=== PATIENT | female | born 1960 | race Caucasian/White ===

== ENCOUNTER → 2019-01-11 17:27 | Outpatient (CLI) | payer BC, OTHER, SELFPAY ==
[2017-01-19 09:31] VITALS: BMI 39.9
[2019-01-11 17:46] LABS: Hematocrit 31.4 % (37-47); Hemoglobin 9.2 g/dL (12.0-15.0); Mean Corp Hgb Conc 29.3 g/dL (32-36); Mean Corpuscular Hgb 24.7 pg (27.0-32.0); Mean Corpuscular Volume 84.4 fL (81-99); Mean Platelet Vol. 9.8 fl (6.2-12.0); Platelet Count 351 K/mm3 (150-450); RBC Distribution Width CV 16.8 % (11.6-14.6); RBC Distribution Width SD 51.8 fl (35.1-43.9); Red Blood Count 3.72 M/mm3 (4.2-5.4)
[2019-01-11 18:22] LABS: Ferritin 6 ng/mL (8-252); Iron 15 ug/dL (50-170)
[2019-01-13 16:34] LABS: Endomysial Antibody IgA Negative (Negative); Immunoglobulin A 85 mg/dL (87-352)
[2019-01-14 15:46] LABS: t-Transglutaminase IgA <2 U/mL (0-3)
== END ==
PROVIDERS: Family Provider Family Medicine; PCP Family Medicine; Referring Provider Internal Medicine Gastroenterology; Visit Provider Internal Medicine Gastroenterology
DX: D50.9 Iron deficiency anemia, unspecified (principal)
CPT/HCPCS: 36415; 82728; 82784; 83516; 83540; 85027; 86255

== ENCOUNTER → 2019-01-12 13:12 | Outpatient (CLI) | payer BC, OTHER, SELFPAY ==
[2017-01-19 09:31] VITALS: BMI 39.9
--- NOTE | 2019-01-12 13:17 | CT_ITS ---
STUDY: CT ABDOMEN AND PELVIS WITH CONTRAST REASON FOR EXAM: Female, 58 years old. Upper abdominal pain, bloating after eating RADIATION DOSAGE (If Supplied By Facility): CTDIvol = ( 14.05 ) mGy, DLP = ( 1122.77 ) mGycm TECHNIQUE: Transaxial images were obtained from the dome of the diaphragm to the symphysis pubis with oral contrast. 100 mL of Isovue-370 was administered. Sagittal and coronal images were reconstructed. Individualized dose optimization techniques were used for this CT. COMPARISON: None. FINDINGS: The visualized lung bases are unremarkable. The heart size is within normal limits. There is no pericardial effusion. Coronary arterial calcifications are present. Normal liver. Normal gallbladder and extrahepatic biliary system. Normal spleen. There are pancreatic calcifications in the distribution of the ducts consistent with chronic pancreatitis. Normal bilateral adrenal glands. There is a 9 mm probable cyst of the right kidney. Normal left kidney. Normal visualized stomach. Normal small intestine. There is sigmoid diverticulosis. There is diffuse sigmoid wall thickening. The appendix is visualized and appears normal. There are calcified plaques of the abdominal aorta and common iliac arteries. Normal inferior vena cava. Normal retroperitoneum. Normal urinary bladder. There is a small umbilical hernia containing fat. Status post total right hip replacement changes are noted. There are degenerative changes of the visualized thoracolumbar spine. CT/Abdomen/Pelvis WITH Contrast IMPRESSION: 1. Pancreatic calcifications noted consistent with chronic pancreatitis. 2. 9 mm probable cyst of the right kidney. Nonemergent ultrasonographic correlation is recommended. 3. Sigmoid diverticulosis. There is diffuse sigmoid wall thickening. This wall thickening may represent chronic diverticular disease. Neoplastic process should be excluded however. 4. Small fat-containing umbilical hernia. 5. Status post total right hip replacement changes. Degenerative changes of the visualized thoracolumbar spine. Electronically Signed: Clarence Reynolds MD at 20:56 EST , Service support ,
== END ==
PROVIDERS: Family Provider Family Medicine; PCP Family Medicine; Referring Provider Family Medicine; Visit Provider Family Medicine
DX: R10.12 Left upper quadrant pain (principal)
CPT/HCPCS: 74177; Q9967; A4216

== ENCOUNTER → 2019-04-08 16:14 | Outpatient (CLI) | payer BC, OTHER, SELFPAY ==
[2019-04-07 15:23] VITALS: BMI 32.8
[2019-04-11 20:07] LABS: Endomysial Antibody IgA Negative (Negative)
[2019-04-11 20:30] LABS: Immunoglobulin A 94 mg/dL (87-352); t-Transglutaminase IgA <2 U/mL (0-3)
== END ==
PROVIDERS: PCP Family Medicine; Referring Provider Internal Medicine Gastroenterology; Visit Provider Internal Medicine Gastroenterology
DX: D50.9 Iron deficiency anemia, unspecified (principal)
CPT/HCPCS: 36415; 82784; 83516; 86255

== ENCOUNTER → 2019-06-15 15:56 | Outpatient (CLI) | payer BC, OTHER, SELFPAY ==
[2019-04-07 15:23] VITALS: BMI 32.8
[2019-06-15 16:50] LABS: Absolute Lymphocyte Count 2.12 X10^3/uL (0.83-4.51); Absolute Neutrophil Count 4.7 X10^3/uL (2.0-7.7); Basophil# 0.04 X10^3/uL; Basophil% 0.5 % (0-1); Eosinophil# 0.62 X10^3/uL; Eosinophils% 7.7 % (0-5); Hematocrit 41.3 % (37-47); Hemoglobin 13.1 g/dL (12.0-15.0); Lymphocyte # 2.12 X10^3/ul (4.0); Lymphocyte % 26.3 % (19-41); Mean Corp Hgb Conc 31.7 g/dL (32-36); Mean Corpuscular Hgb 30.3 pg (27.0-32.0); Mean Corpuscular Volume 95.4 fL (81-99); Monocyte# 0.61 X10^3/uL; Monocyte% 7.6 % (0-10); NRBC Flagged by Analyzer 0 % (0-5); Neutrophil # 4.65 X10^3/uL (2.7-7.7); Neutrophil % 57.5 % (47-70); Platelet Count 253 K/mm3 (150-450); RBC Distribution Width SD 52.6 fl (35.1-43.9); Red Blood Count 4.33 M/mm3 (4.2-5.4); White Blood Count 8.1 K/mm3 (4.4-11.0)
[2019-06-15 17:18] LABS: Vitamin B12 387 pg/mL (211-911)
[2019-06-15 17:29] LABS: AST(SGOT) 18 U/L (15-37); Alanine Aminotransfer ALT/SGPT 19 U/L (13-56); Albumin, Serum 3.4 g/dL (3.2-5.0); Alkaline Phosphatase 105 U/L (45-117); Anion Gap 5 (5-15); BUN 22 mg/dL (7-18); BUN/Creat Ratio 28.1 RATIO (10-20); Chloride 105 mmol/L (98-107); Creatinine, Serum 0.78 mg/dL (0.55-1.02); EST Glomerular Filtration Rate 79 mL/min (>60); Est Glom Filt Rate - Afr Amer 96 mL/min (>60); Ferritin 53 ng/mL (8-252); Globulin 3.4 g/dL (2.2-4.2); Glucose 124 mg/dL (74-106); Iron 79 ug/dL (50-170); Iron Binding Capacity,Total 298 ug/dL (250-450); LDH 182 U/L (84-246); PERCENT IRON SATURATION 26.5 % (15.0-55.0); Protein, Total 6.8 g/dL (6.4-8.2); Sodium Level 137 mmol/L (136-145)
== END ==
PROVIDERS: PCP Family Medicine; Referring Provider Internal Medicine Medical Oncology; Visit Provider Internal Medicine Medical Oncology
DX: D50.8 Other iron deficiency anemias (principal)
CPT/HCPCS: 36415; 80053; 82607; 82728; 82746; 83540; 83550; 83615; 85025

== ENCOUNTER 2020-07-26 20:58 | Observation (INO) | payer OTHER, BC, SELFPAY ==
[2019-12-21 08:59] VITALS: BMI 32.1
[2020-07-26 20:59] VITALS: BP 107/63; PULSE 82; RESP 16; TEMP 36.2; O2SAT 96; BMI 29.2
--- NOTE | 2020-07-26 21:30 | EKG12_ITS ---
Test Reason : ABD PAIN Blood Pressure : / mmHG Vent. Rate : 143 BPM Atrial Rate : 441 BPM P-R Int : 000 ms QRS Dur : 106 ms QT Int : 332 ms P-R-T Axes : 000 -07 151 degrees QTc Int : 512 ms Atrial fibrillation with rapid ventricular response Moderate voltage criteria for LVH, may be normal variant Inferior infarct , age undetermined Marked ST abnormality, possible lateral subendocardial injury Abnormal ECG Confirmed by CHANDLER CRONIN, LAUREN ([id number]), assistant editor PABLO QUINONES ([id number]) on 07/30/2020 10:53:51 A M Referred By: ERUM Confirmed By:NURY ARTEAGA MD
--- NOTE | 2020-07-26 21:31 | EDS_ITS ---
HPI HPI - GI History of Present Illness Chief Complaint: Abd Pain Informant: patient and family Abdominal Pain/Flank Pain Onset: Weeks Context: Gradual Onset Timing: Intermittent Quality: Cramping Location: Epigastric and LUQ Current Severity: Mild Maximum Severity: Mild Worsened by: Nothing Relieved by: Remaining Still Nausea/Vomiting/Emesis GI Symptom: Positive for Nausea; Negative for Vomiting Onset: Weeks Severity: Mild Diarrhea/Melena/Hematochezia GI Symptom: Negative for Diarrhea, Melena and Hematochezia Associated Symptoms Associated Symptoms: Negative for Dysuria and Frequency Narrative Narrative: 60-year-old female history of pancreatitis and pancreatic insufficiency. Previously was on the medication Creon but there is been an insurance issue and she is currently not able to get it filled. States that she has not been feeling well the last several weeks with intermittent epigastric le ft upper quadrant abdominal pain. Nausea but no vomiting. No fever. No melena. Mild diarrhea no melena. Prior similar symptoms: Yes Recent Illness/Hospitalization: No PFSH PFSH Medical History Anemia Anxiety CAD (coronary artery disease) Carpal tunnel syndrome Fibromyalgia GERD (gastroesophageal reflux disease) IBS (irritable bowel syndrome) Osteoarthritis Home Medications lisinopril 20 mg PO DAILY 02/28/13 [History Last Taken Unknown] aspirin 81 mg PO DAILY@0800 07/17/15 [History Last Taken Unknown] atorvastatin 80 mg PO QHS 07/17/15 [History Last Taken Unknown] gabapentin 600 mg PO TIDCM 01/20/19 [History Last Taken Unknown] hydrocodone-acetaminophen 1 tab PO TID 01/20/19 [History Last Taken Unknown] twzrpa-yrepcevl-hirwrrg 1 ea PO TID 01/20/19 [History Last Taken Unknown] metoprolol tartrate 100 mg PO DAILY 01/20/19 [History Last Taken Unknown] pantoprazole 40 mg PO DAILY 01/20/19 [History Last Taken Unknown] duloxetine 90 mg PO DAILY 01/27/19 [History Last Taken Unknown] polysaccharide iron complex 150 mg PO DAILYCM #90 cap 06/16/19 [Rx Last Taken Unknown] Allergy/AdvReac Type Severity Reaction Status Date / Time latex Allergy Other Verified 07/26/20 21:02 Family History Sister Cervical cancer Grandfather Cancer Surgical History H/O total hip arthroplasty Hx of cardiac cath Social History Smoking Status: Current every day smoker tobacco type: cigarettes ROS ROS ED Review of Systems ROS Unobtainable: Denies due to encephalopathy Constitutional Constitutional ED: Denies chills or fever(s) ENT ENT ED: Denies ear pain or sore throat Cardiovascular Cardiovascular: Reports racing heartbeat; Denies chest pain Respiratory/Chest Respiratory/Chest: Denies cough or dyspnea Gastrointestinal Gastrointestinal: Reports abdominal pain, diarrhea and nausea; Denies vomiting Genitourinary Genitourinary ED: Denies dysuria or hematuria Musculoskeletal Musculoskeletal: Denies myalgias Integumentary Denies rash Neurologic Neurologic: Denies headache(s) Psychiatric Psychiatric: Denies depression Endocrine Endocrinology: Denies polyuria Hematologic/Lymphatic Hematologic/Lymphatic: Denies easy bruising Allergic/Immunologic Allergic/Immunologic ED: Denies urticaria EXAM Physical Exam Narrative Exam Narrative: Older female no acute distress. Vital signs stable afebrile. Does not look septic or toxic. Does not look significantly dehydrated. Exam benign except for mild epigastric and left upper quadrant tenderness. No rebound, guarding or rigidity. No distention. Heart rates in the 100s. Const Vital Signs: 07/26/20 20:59 Temperature 97.2 F L Temperature Source Temporal Pulse Rate 82 Respiratory Rate 16 Blood Pressure 107/63 Blood Pressure Mean 77 Pulse Ox 96 Oxygen Delivery Method Room Air Positive well nourished and well developed General Appearance ED: well developed HEENT Reports moist mucous membranes normocephalic and atraumatic; Negative for trauma or tenderness Eyes PERRL and EOMs intact bilaterally Neck no lymphadenopathy, supple and no JVD General: Negative for tenderness Resp normal respiratory effort and clear to auscultation bilaterally Cardio regular rhythm and no murmurs Rate: tachycardic GI non-distended and no masses Inspection: Negative for abdominal distention Auscultation: normoactive bowel sounds; Negative for hyperactive bowel sounds or hypoactive bowel sounds Palpation: soft and tender; Negative for guarding or rebound tenderness present Back/Spine no CVA tenderness Extremity full ROM General Extremety ED: Negative for edema or tenderness General Extremity: Negative for edema Neuro CN's II-XII intact bilaterally Sensorium / Orientation: alert, oriented to person, oriented to place, oriented to time and orientation impaired Motor Exam: strength 5/5 throughout Psych mental status grossly normal Skin Lesions: no lesions Rashes: no rashes MDM MDM MDM Narrative Medical decision making narrative: 60-year-old female with epigastric abdominal pain. Undergo a GI work-up. Also she states she has had accelerated heart rate and EKG and troponin to be obtained. Repeat exam patient is doing well at 11:20 PM. After single dose of Cardizem IV her heart rates in the 70s. Currently she has converted to a sinus rhythm. She is having no pain. She denies discussed all of her test results. I have the hospitalist on page for admission. New onset A. fib RVR. Lab Data Attestation: I reviewed the patient's lab results. Lab results narrative: CBC normal. White count 9. Hemoglobin 13. Electrolytes unremarkable gap of 6. Creatinine 1.1. Liver enzymes normal. Troponin normal. Lipase normal at 42. Portable chest x-ray unremarkable. EKG consistent with A. fib RVR. Labs: Laboratory Results - last 24 hr 07/26/20 07/26/20 21:34 21:34 WBC 9.3 RBC 4.74 Hgb 13.6 Hct 44.0 MCV 92.8 MCH 28.7 MCHC 30.9 L RDW Std Deviation 53.3 H RDW Coeff of Mary 15.5 H Plt Count 335 MPV 10.5 Immature Gran % (Auto) 0.400 Neut % (Auto) 78.6 H Lymph % (Auto) 13.4 L Jennings % (Auto) 6.5 Eos % (Auto) 0.8 Baso % (Auto) 0.3 Absolute Neuts (auto) 7.3 Absolute Lymphs (auto) 1.24 Nucleated RBC % 0 Sodium 140 Potassium 3.8 Chloride 105 Carbon Dioxide 29.0 Anion Gap 6 BUN 24 H Creatinine 1.16 H Estim Creat Clear Calc 43.42 Est GFR (MDRD) Af Amer 61 Est GFR (MDRD) Non-Af 50 L BUN/Creatinine Ratio 20.7 H Glucose 123 H Calcium 8.8 Total Bilirubin 0.40 AST 15 ALT 13 Alkaline Phosphatase 104 Troponin I 0.042 Total Protein 7.1 Albumin 3.4 Globulin 3.7 Albumin/Globulin Ratio 0.9 Lipase 42 L Radiography Diagnostic Testing: Radiology Impression Chest X-Ray 07/26/20 22:17 IMPRESSION: Normal x-ray examination of the chest. Electronically Signed: Annette Tan MD at 23:02 EDT Tel , Service support , Portable chest x-ray no acute abnormality. Portable 1 view interpreted by myself and the radiologist. Borderline cardiomegaly. Rhythm Strip Rhythm Strip: A-fib Rate: 143 Ectopy: None EKG Initial EKG: Attestation: I personally reviewed and interpreted this EKG as follows: Interpretation: Atrial Fibrillation Comments: A. fib RVR rate of 143 with rate dependent ischemia V3 through V6 with ST depression. Also LVH. Inferior infarct. Discharge Plan Triage Chief Complaint: Abd Pain ED Provider: Reyes Weldon Dx/Rx/DC Orders Clinical Impression: Atrial fibrillation, new onset Prescriptions: No Action lisinopril 40 MG tablet 20 mg PO DAILY RF: 0 atorvastatin 80 MG tablet 80 mg PO QHS RF: 0 aspirin 81 MG tablet,chewable 81 mg PO DAILY@0800 RF: 0 gabapentin 600 MG tablet 600 mg PO TIDCM RF: 0 metoprolol tartrate 100 MG tablet 100 mg PO DAILY RF: 0 hydrocodone-acetaminophen 1 TABLET tablet 1 tab PO TID RF: 0 pantoprazole 40 MG tablet 40 mg PO DAILY RF: 0 lqoznu-pscebber-rhytrwx 1 EACH capsule,delayed release(DR/EC) 1 ea PO TID RF: 0 duloxetine 60 MG capsule 90 mg PO DAILY RF: 0 polysaccharide iron complex 150 MG capsule 150 mg PO DAILYCM Qty: 90 RF: 3 Primary Care Provider: Emiliano Jose Referrals: Emiliano Jose DO [Primary Care Provider] - Disposition Disposition: Acute Care Hospital [facility]
[2020-07-26] MEDS: 0.9% Normal Saline 1,000 ML 125 ML IV (21:39)
[2020-07-26 21:49] LABS: Absolute Lymphocyte Count 1.24 X10^3/uL (0.83-4.51); Absolute Neutrophil Count 7.3 X10^3/uL (2.0-7.7); Basophil# 0.03 X10^3/uL; Basophil% 0.3 % (0-1); Eosinophil# 0.07 X10^3/uL; Eosinophils% 0.8 % (0-5); Hemoglobin 13.6 g/dL (12.0-15.0); Lymphocyte # 1.24 X10^3/ul (0.83-4.51); Lymphocyte % 13.4 % (19-41); Mean Corp Hgb Conc 30.9 g/dL (32-36); Mean Corpuscular Hgb 28.7 pg (27.0-32.0); Mean Corpuscular Volume 92.8 fL (81-99); Mean Platelet Vol. 10.5 fl (6.2-12.0); Monocyte% 6.5 % (0-10); NRBC Flagged by Analyzer 0 % (0-5); Neutrophil % 78.6 % (47-70); Platelet Count 335 K/mm3 (150-450); RBC Distribution Width CV 15.5 % (11.6-14.6); RBC Distribution Width SD 53.3 fl (35.1-43.9); Red Blood Count 4.74 M/mm3 (4.2-5.4); White Blood Count 9.3 K/mm3 (4.4-11.0)
--- NOTE | 2020-07-26 22:17 | RAD_ITS ---
STUDY: X-RAY CHEST REASON FOR EXAM: Female, 60 years old. new onset a-fib TECHNIQUE: Single AP portable view of the chest. COMPARISON: 02/28/2013. FINDINGS: The lungs are clear and expanded. There is no demonstrated pleural abnormality. Normal size heart. Normal mediastinum and silviano. Normal visualized pulmonary arteries. Normal visualized aortic arch and descending thoracic aorta. Normal visualized thoracic spine. Normal visualized ribs, clavicles, and shoulders. There is no demonstrated abnormality of the visualized soft tissue structures of the upper abdomen. RAD/Chest 1 View (Portable) IMPRESSION: Normal x-ray examination of the chest. Electronically Signed: Annette Tan MD at 23:02 EDT Tel , Service support ,
[2020-07-26 22:21] LABS: ALB/GLOB Ratio 0.9 RATIO (0.9-2.4); AST(SGOT) 15 U/L (15-37); Alanine Aminotransfer ALT/SGPT 13 U/L (13-56); Albumin, Serum 3.4 g/dL (3.2-5.0); Alkaline Phosphatase 104 U/L (45-117); Anion Gap 6 (5-15); BUN 24 mg/dL (7-18); BUN/Creat Ratio 20.7 RATIO (10-20); Calcium,Total 8.8 mg/dL (8.5-10.1); Chloride 105 mmol/L (98-107); Creatinine, Serum 1.16 mg/dL (0.55-1.02); EST Glomerular Filtration Rate 50 mL/min (>60); Est Glom Filt Rate - Afr Amer 61 mL/min (>60); Estimated Creatinine Clearance 43.42 ml/min; Globulin 3.7 g/dL (2.2-4.2); Glucose 123 mg/dL (74-106); Lipase 42 U/L (73-393); Potassium 3.8 mmol/L (3.5-5.1); Protein, Total 7.1 g/dL (6.4-8.2); Sodium Level 140 mmol/L (136-145)
[2020-07-26] MEDS: dilTIAZem 25 MG/5 ML Vial IV BOLUS (22:27)
[2020-07-26 23:19] VITALS: BP 110/76; PULSE 71; RESP 18; O2SAT 97
[2020-07-26 23:34] LABS: International Normalized Ratio 1.1
--- NOTE | 2020-07-26 23:37 | HP.PCM.HOS_ITS ---
[facility] - General General Date of Admission: 07/26/20 Date of Service: 07/26/20 HPI Narrative ANNETTE DOMINGUEZ, is a 60 F with a significant history of CAD status post 7 stents; fibromyalgia; and pancreatic insufficiency who presents to the emergency department with persistent palpitation that started on the same day of presentation. Reportedly she has had palpitations for several months and outpatient rhythm study was scheduled for August 15 2020. She reports difficulty in having outpatient rhythm study schedule because of insurance issues. Further she reports malaise; weakness; lightheadedness and nausea. Further she has a chronic left upper quadrant pain that she attributes to her pancreatic insufficiency. Reportedly she is not eating because when she eats she has abdominal bloating and flatulence. However because of insurance issue she has not been able to afford her pancreatic pills. Further she is on chronic [place] but she has not received refill because she is yet to see pain management. FORMERLY [facility], [facility]1983 Medical History Anemia Anxiety CAD (coronary artery disease) Carpal tunnel syndrome Fibromyalgia GERD (gastroesophageal reflux disease) IBS (irritable bowel syndrome) Osteoarthritis Home Medications lisinopril 20 mg PO DAILY 02/28/13 [History Last Taken Unknown] aspirin 81 mg PO DAILY@0800 07/17/15 [History Last Taken Unknown] atorvastatin 80 mg PO QHS 07/17/15 [History Last Taken Unknown] gabapentin 600 mg PO TIDCM 01/20/19 [History Last Taken Unknown] hydrocodone-acetaminophen 1 tab PO TID 01/20/19 [History Last Taken Unknown] toyuem-qhqqzwmu-jnoibel 1 ea PO TID 01/20/19 [History Last Taken Unknown] metoprolol tartrate 100 mg PO DAILY 01/20/19 [History Last Taken Unknown] pantoprazole 40 mg PO DAILY 01/20/19 [History Last Taken Unknown] duloxetine 90 mg PO DAILY 01/27/19 [History Last Taken Unknown] polysaccharide iron complex 150 mg PO DAILYCM #90 cap 06/16/19 [Rx Last Taken Unknown] Allergy/AdvReac Type Severity Reaction Status Date / Time latex Allergy Other Verified 07/27/20 00:12 Family History Sister Cervical cancer Grandfather Cancer Other Heart disease Surgical History H/O total hip arthroplasty Hx of cardiac cath Social History Smoking Status: Current every day smoker tobacco type: cigarettes ROS ROS Narrative 12 point review of system is negative except as stated in HPI. Vital Signs Vital Signs Vital Signs: 07/26/20 20:59 07/26/20 23:19 Temperature 97.2 F L Temperature Source Temporal Pulse Rate 82 71 Respiratory Rate 16 18 Blood Pressure 107/63 110/76 Blood Pressure Mean 77 87 Pulse Ox 96 97 Oxygen Delivery Method Room Air Room Air Weight Weight: 77.111 kg Body Mass Index (BMI) 29.2 Physical Exam Narrative Physical exam: General: Well-nourished, well-developed, no acute distress Head: Normocephalic, atraumatic, no tenderness Eyes: PERRLA, EOMI ENT, no trauma, moist mucous membranes, no rhinorrhea Neck: Nontender, full range of motion, no spinal tenderness, deformities, step- off CVS: Irregularly irregular rate and rhythm. Respiratory no acute distress, clear to auscultation bilaterally, chest wall nontender, no wheezing Abdomen: Soft, nontender, nondistended, normal bowel sounds, no masses : Deferred Back: Nontender, no CVA tenderness, no midline spinal tenderness, deformities, step-offs Extremities: Nontender full range of motion, no trauma Skin: Normal color, no trauma, abrasions Neuro: Alert, oriented, cranial nerves II through XII grossly intact. Results Lab / Micro Data Result Diagrams: 07/26/20 21:34 07/26/20 21:34 Labs: Laboratory Results - last 24 hr 07/26/20 07/26/20 07/26/20 21:34 21:34 23:17 WBC 9.3 RBC 4.74 Hgb 13.6 Hct 44.0 MCV 92.8 MCH 28.7 MCHC 30.9 L RDW Std Deviation 53.3 H RDW Coeff of Mary 15.5 H Plt Count 335 MPV 10.5 Immature Gran % (Auto) 0.400 Neut % (Auto) 78.6 H Lymph % (Auto) 13.4 L [place] % (Auto) 6.5 Eos % (Auto) 0.8 Baso % (Auto) 0.3 Absolute Neuts (auto) 7.3 Absolute Lymphs (auto) 1.24 Nucleated RBC % 0 PT 14.0 INR 1.1 Sodium 140 Potassium 3.8 Chloride 105 Carbon Dioxide 29.0 Anion Gap 6 BUN 24 H Creatinine 1.16 H Estim Creat Clear Calc 43.42 Est GFR (MDRD) Af Amer 61 Est GFR (MDRD) Non-Af 50 L BUN/Creatinine Ratio 20.7 H Glucose 123 H Calcium 8.8 Total Bilirubin 0.40 AST 15 ALT 13 Alkaline Phosphatase 104 Troponin I 0.042 Total Protein 7.1 Albumin 3.4 Globulin 3.7 Albumin/Globulin Ratio 0.9 Lipase 42 L Rhythm Strip Rhythm Strip: A-fib Rate: 143 Ectopy: None Radiology Impression Chest X-Ray 07/26/20 22:17 IMPRESSION: Normal x-ray examination of the chest. Electronically Signed: Annette Tan MD at 23:02 EDT Tel , Service support , Assessment & Plan Assessment/Plan (1) Atrial fibrillation, new onset: (2) Chronic pancreatitis: QUALIFIERS: Pancreatitis type: unspecified pancreatitis type Qualified Code(s): K86.1 - Other chronic pancreatitis (3) Fibromyalgia: (4) Arthritis: (5) Elevated serum creatinine: PLAN: New onset A. fib with rapid ventricular response. Place on stepdown on telemetry Obtain echo Lovenox 1 mg per kilogram subcutaneous every 12 hours Review of EKG taken at emergency department showed A. fib with rapid ventricular response with ventricular rate of 143; and with ST depression in V3 through V6. Received a bolus of Cardizem IV that reportedly brought heart rate to 60s. At the time of examination a heart rate was 120 and above. Will start patient on Cardizem drip. Metoprolol continued.Review of emergency medical department labs showed potassium of 3.8. 20 mEq of potassium ordered. Trend BMP. Check magnesium and TSH. Impression of chest x-ray by radiology: Normal x-rays image of the chest. Actual chest x-ray image was independently interpreted and I agree radiologist interpretation. Chronic pancreatitis Review of emergency department labs showed lipase of 42. Resume home pancreatic enzymes Elevated creatinine Patient with mild bump in creatinine. Review of Emergency department labs showed baseline creatinine around 0.9. With patient reporting that she has nausea and poor appetite we will start patient on gentle IV hydration. Continue home lisinopril. Trend BMP. Tobacco abuse Counseled Reports that at home she is on Chantix but she is not taking because of abdominal issues. Nicotine patch ordered. Fibromyalgia Cymbalta and gabapentin continued OARRS reviewed CAD S/p stent Aspirin, Plavix and high intensity statin continued. Metoprolol and lisinopril continued. Hypertension Blood pressure is stable. Metoprolol and lisinopril continued. Started on Cardizem drip for A. fib. Trend blood pressure and adjust blood pressure medications as necessary DVT prophylaxis: Not indicated since patient has been started on therapeutic dose of Lovenox for A. fib. Charges/Coding Visit Charges OBSV E&M: 49010 Initial observation care L3
[2020-07-26 23:50] VITALS: BP 104/87; PULSE 106; RESP 18; TEMP 36.1; O2SAT 97
--- NOTE | 2020-07-26 23:58 | ECHOD_ITS ---
Reason For Study: Afib/Flutter Procedure This was a 2D Doppler, Color Flow transthoracic echocardiogram. Bubble Study Performed. Exam performed portable in patient room. Left Ventricle Normal LV size. The estimated ejection fraction is 55 %. Stage 2 diastolic dysfunction. Infero- Basal: Akinetic. Right Ventricle Normal RV size. Normal systolic function. Atria The left atrium is mildly enlarged. The right atrium is mildly enlarged. No doppler evidence for ASD. Bubble contrast study negative for right to left interatrial shunt. Mitral Valve There is no mitral valve stenosis. Trivial mitral valve insufficiency. Tricuspid Valve There is no tricuspid stenosis. Trivial tricuspid valve insufficiency. Unable to estimate RV systolic pressure due to insufficient tricuspid regurgitant envelope. Aortic Valve Trisinus/trileaflet aortic valve. There is no aortic stenosis. No aortic valve insufficiency. Pulmonic Valve There is no pulmonic valvular stenosis. No pulmonic valve insufficiency. Great Vessels Normal aortic root. Pericardium/Pleural No pericardial effusion. Medication Performed a rapid injection of agitated mix of 9 cc saline and 1cc air to assess for atrial septal defect. MMode/2D Measurements & Calculations LVIDd: 5.7 cm IVSd: 1.9 cm LA dimension: 4.2 cm LVIDs: 4.6 cm LVPWd: 1.2 cm FS: 19.0 % LAV(MOD-bp): 128.9 ml LA A4 area: 33.8 cm2 RA A4 area: 20.9 cm2 LAV(MOD-bp) Indexed: 70.6 ml/m2 LAV(MOD-sp2): 114.4 ml LAV(MOD-sp4): 133.9 ml Time Measurements MV dec time: 0.28 sec Doppler Measurements & Calculations MV E max roberto: 83.0 cm/sec Lat Peak E' Roberto: 5.9 cm/sec Med Peak E' Roberto: 4.1 cm/sec MV A max roberto: 105.5 cm/sec E/E' lat: 14.1 E/E' med: 20.4 MV E/A: 0.79 MV V2 max: 127.1 cm/sec MV P1/2t max roberto: 116.5 cm/sec Ao V2 max: 187.2 cm/sec MV max P.5 mmHg MV P1/2t: 78.6 msec Ao max P.0 mmHg MV V2 mean: 68.5 cm/sec MV dec slope: 434.3 cm/sec2 MV mean P.2 mmHg MV V2 VTI: 43.8 cm MVA(P1/2t): 2.8 cm2 LV V1 max: 88.4 cm/sec PA V2 max: 105.0 cm/sec LV V1 max P.1 mmHg ECHO/Echo Complete Interpretation Summary The estimated ejection fraction is 55 %. Stage 2 diastolic dysfunction. Infero-Basal: Akinetic. The left atrium is mildly enlarged. Trivial mitral valve insufficiency. Ordering Physician: Alfredito Jorge Referring Physician: Emiliano Jose Performed By: Alex Bird RCS
[2020-07-27] VITALS (27 sets, daily range): BP systolic 110–138; BP diastolic 63–86; PULSE 57–132; RESP 14–24; TEMP 36.4–36.9; O2SAT 95–99; BMI 29.2
[2020-07-27] LABS: Magnesium 2.3 mg/dL (1.6-2.6)
[2020-07-27] MEDS: 0.9% Normal Saline 1,000 ML 75 ML IV (01:02)
[2020-07-27] MEDS: Enoxaparin 80 MG/0.8 ML Syringe SC (01:02)
[2020-07-27] MEDS: Potassium Chloride Oral Tablet 20 MEQ PO (01:21)
[2020-07-27 06:00] LABS: Anion Gap 6 (5-15); BUN 20 mg/dL (7-18); BUN/Creat Ratio 27.9 RATIO (10-20); Calcium,Total 7.9 mg/dL (8.5-10.1); Chloride 108 mmol/L (98-107); Creatinine, Serum 0.72 mg/dL (0.55-1.02); EST Glomerular Filtration Rate 88 mL/min (>60); Est Glom Filt Rate - Afr Amer 106 mL/min (>60); Estimated Creatinine Clearance 69.96 ml/min; Glucose 102 mg/dL (74-106); Potassium 3.7 mmol/L (3.5-5.1); Sodium Level 141 mmol/L (136-145); Thyroid Stim Hormone (TSH) 0.52 uIU/mL (0.358-3.74)
--- NOTE | 2020-07-27 06:40 | EKG12_ITS ---
Test Reason : ARRYTHMIA Blood Pressure : / mmHG Vent. Rate : 063 BPM Atrial Rate : 063 BPM P-R Int : 132 ms QRS Dur : 096 ms QT Int : 468 ms P-R-T Axes : 018 015 120 degrees QTc Int : 478 ms Normal sinus rhythm Inferior infarct , age undetermined ST & T wave abnormality, consider lateral ischemia Abnormal ECG When compared with ECG of 26-JUL-2020 21:40, MANUAL COMPARISON REQUIRED, DATA IS UNCONFIRMED Confirmed by CHANDLER CRONIN, LAUREN ([id number]), commissioning editor PABLO QUINONES ([id number]) on 07/30/2020 11:15:58 A M Referred By: BASIL Confirmed By:NURY ARTEAGA MD
[2020-07-27] MEDS: HYDROcodone Bitartrate/Apap 5/325 Tablet PO (06:46)
--- NOTE | 2020-07-27 09:38 | DCINST_ITS ---
Discharge Instructions Diet Discharge Diet: 2000 mg Sodium Diet Activity Discharge Activity: Return to Normal Activity and May Not Drive (For 2 weeks until see his PCP) Weight Bearing Status: Weight bearing as tolerated Dressing / Incision Call your doctor if you observe: Fever of 101 or Higher, Coldness, Increased Pain, Numbness or Tingling, Change in Color, Inability to urinate, Inability to have a bowel movement, Using more than 1 pad per hour, Shortness of breath, Dizziness, Fainting spells, Swelling in the ankles, Chest pain, Prolonged hiccupping, Increased palpitations (irregular heartbeat), Calf discomfort and Uncontrolled pain Follow Up Care Test Results: Test results from this visit will be discussed in further detail at your follow-up appointment, if applicable. Discharge Plan Admission Admit Date/Time: 07/26/20 23:36 Primary Reason for Your Visit: A. huy with RVR Attending Provider: Ari Ugalde Primary Care Provider: Emiliano Jose Instructions Patient Instructions: Atrial Fibrillation Additional Instructions / Restrictions: Follow-up with on Dr. Elizondo in [facility] in 2 weeks Discharge Orders/Prescriptions Prescriptions: New Eliquis 5 mg Tablet 5 mg PO BID Qty: 60 RF: 1 sennosides-docusate sodium [Stool Softener-Stimulant Laxat] 8.6-50 mg Tablet 2 tab PO BID PRN PRN (Reason: Constipation) Qty: 0 RF: 0 diltiazem HCl 120 mg Capsule,Extended Release 24hr 120 mg PO DAILY Qty: 30 RF: 1 Continued atorvastatin 80 MG tablet 80 mg PO QHS RF: 0 aspirin 81 MG tablet,chewable 81 mg PO DAILY@0800 RF: 0 gabapentin 600 MG tablet 600 mg PO TIDCM RF: 0 hydrocodone-acetaminophen 1 TABLET tablet 1 tab PO TID PRN (Reason: Pain) RF: 0 pantoprazole 40 MG tablet 40 mg PO DAILY RF: 0 duloxetine 60 MG capsule 90 mg PO DAILY RF: 0 ferrous sulfate 325 mg (65 mg iron) Tablet 325 mg PO DAILY RF: 0 clopidogrel 75 mg Tablet 75 mg PO DAILY RF: 0 lisinopril 40 MG tablet 20 mg PO DAILY Qty: 0 RF: 0 Changed qwzrwa-kxezfylh-lsvbqll 1 EACH capsule,delayed release(DR/EC) 2 cap PO TID Qty: 180 RF: 1 metoprolol succinate tablet 100 mg PO DAILY Qty: 30 RF: 0 Discontinued polysaccharide iron complex 150 MG capsule 150 mg PO DAILYCM Qty: 90 RF: 3 Referrals / Follow Up: Emiliano Jose DO [Primary Care Provider] - In 1 Week Disposition Disposition (needs filled in before D/C Order can be placed): Home, self care
--- NOTE | 2020-07-27 09:38 | PCM.DC.SUM ---
Providers Date of Admission: 07/26/20 Primary Care Physician: Dr. Emiliano Jose DO Reason For Visit: AFIB WITH RVR Diagnosis Discharge Diagnosis (1) Atrial fibrillation, new onset: Status: Acute Code(s): I48.91 - Unspecified atrial fibrillation (2) Chronic pancreatitis: Status: Chronic Code(s): K86.1 - Other chronic pancreatitis Qualifiers: Pancreatitis type: unspecified pancreatitis type Qualified Code(s): K86.1 - Other chronic pancreatitis (3) Fibromyalgia: Status: Acute Code(s): M79.7 - Fibromyalgia (4) Arthritis: Status: Acute Code(s): M19.90 - Unspecified osteoarthritis, unspecified site (5) Elevated serum creatinine: Status: Acute Code(s): R79.89 - Other specified abnormal findings of blood chemistry Medications at Discharge Home Medications aspirin 81 mg PO DAILY@0800 07/17/15 atorvastatin 80 mg PO QHS 07/17/15 gabapentin 600 mg PO TIDCM 01/20/19 hydrocodone-acetaminophen 1 tab PO TID PRN 01/20/19 pantoprazole 40 mg PO DAILY 01/20/19 duloxetine 90 mg PO DAILY 01/27/19 apixaban [Eliquis] 5 mg PO BID #60 tab 07/27/20 clopidogrel 75 mg PO DAILY 07/27/20 diltiazem HCl 120 mg PO DAILY #30 cap 07/27/20 ferrous sulfate 325 mg PO DAILY 07/27/20 xysgau-gpjinhvy-jllufie 2 cap PO TID #180 cap 07/27/20 lisinopril 20 mg PO DAILY #0 tab 07/27/20 metoprolol succinate 100 mg PO DAILY #30 tab 07/27/20 sennosides-docusate sodium [Stool Softener-Stimulant Laxat] 2 tab PO BID PRN PRN #0 tab 07/27/20 Hospital Course Summary of Care Provided Hospital Course: This 60-year-old female with history of coronary artery status post 7 stents, chronic pain otitis was admitted with palpitation on the day of presentation. Patient admitted to PCU with new onset A. fib with heart rate of 143/min. Patient was started on IV Cardizem drip and converted to normal sinus rhythm. Cardizem drip titrated and discontinued and changed to Cardizem CD. Patient started on Lovenox and changed to Eliquis 5 mg twice daily. 2D echo was done shows EF 55% with stage II diastolic dysfunction suggestive of chronic diastolic heart failure/HFpEF. Left atrium mildly enlarged. TSH normal. Chest x-ray reported normal. Patient also history of chronic pancreatitis and a prescription for creon given. There is mild increase in creatinine, 1.16 which improved to 0.72 baseline is around 0.9. Does not meet criteria for SAMANTHA. Other comorbidities include fibromyalgia, coronary artery status post stents and hypertension is stable. Chronic smoker on Chantix. Discharge medication reconciliation done. Discharge follow-up instructions completed. Discharge process discussed with the patient and all questions were answered to patient's satisfaction. Prescriptions of Cardizem CD, Eliquis and Creon sent to patient's pharmacy Total time spent, exact 35 minutes on discharge meds reconciliation, examination, coordination of care with nurses and ancillary staff, review of imaging and blood test and discussion with the patient on follow-up instructions Physical Exam Narrative Seen and examined. Patient was started on Cardizem drip and converted to sinus rhythm. Changed to Cardizem CD 120 mg daily. History of coronary artery disease status post stents. Follows infrastructure solutions architect outside Dr. Elizondo Patient also has history of chronic pancreatitis but has not refilled Creon for few weeks. General: Alert, Oriented x3, Cooperative HEENT: Atraumatic, PERRLA, EOMI, Normocephalic Oral: No Gingival or Mucosal Lesions/ Ulcerations Neck: Supple, No JVD, Negative Carotid Bruits Lungs: Air entry equal in bilateral lung bases. No crepitation/rhonchi Cardiovascular: Regular rate, Regular Rhythm, Normal S1, Normal S2, No murmurs Abdomen: Bowel Sounds Present, Soft, Non Tender, Non-Distended : No renal angle tenderness. No suprapubic tenderness. Extremities: No edema, Capillary Refill Less than 3 Seconds Skin: No rashes, No breakdown Musculoskeletal: No Tenderness to Palpation of Joints or Extremities Neurological: Cranial nerves II-XII grossly intact, Deep Tendon Reflexes 2+/4, Neuro grossly intact Psych/Mental Status: Normal Affect, Appropriate. Weight / BMI Weight Weight: 170 lb 6.677 oz Body Mass Index (BMI) 29.2 ABG / Lab / Microbiology Data Result Diagrams: 07/26/20 21:34 07/27/20 05:02 Laboratory: Laboratory Results - last 24 hr 07/26/20 07/26/20 07/26/20 21:34 21:34 21:34 WBC 9.3 RBC 4.74 Hgb 13.6 Hct 44.0 MCV 92.8 MCH 28.7 MCHC 30.9 L RDW Std Deviation 53.3 H RDW Coeff of Mary 15.5 H Plt Count 335 MPV 10.5 Immature Gran % (Auto) 0.400 Neut % (Auto) 78.6 H Lymph % (Auto) 13.4 L [place] % (Auto) 6.5 Eos % (Auto) 0.8 Baso % (Auto) 0.3 Absolute Neuts (auto) 7.3 Absolute Lymphs (auto) 1.24 Nucleated RBC % 0 PT INR Sodium 140 Potassium 3.8 Chloride 105 Carbon Dioxide 29.0 Anion Gap 6 BUN 24 H Creatinine 1.16 H Estim Creat Clear Calc 43.42 Est GFR (MDRD) Af Amer 61 Est GFR (MDRD) Non-Af 50 L BUN/Creatinine Ratio 20.7 H Glucose 123 H Calcium 8.8 Magnesium 2.3 Total Bilirubin 0.40 AST 15 ALT 13 Alkaline Phosphatase 104 Troponin I 0.042 Total Protein 7.1 Albumin 3.4 Globulin 3.7 Albumin/Globulin Ratio 0.9 Lipase 42 L TSH 07/26/20 07/27/20 23:17 05:02 WBC RBC Hgb Hct MCV MCH MCHC RDW Std Deviation RDW Coeff of Mary Plt Count MPV Immature Gran % (Auto) Neut % (Auto) Lymph % (Auto) [place] % (Auto) Eos % (Auto) Baso % (Auto) Absolute Neuts (auto) Absolute Lymphs (auto) Nucleated RBC % PT 14.0 INR 1.1 Sodium 141 Potassium 3.7 Chloride 108 H Carbon Dioxide 27.0 Anion Gap 6 BUN 20 H Creatinine 0.72 Estim Creat Clear Calc 69.96 Est GFR (MDRD) Af Amer 106 Est GFR (MDRD) Non-Af 88 BUN/Creatinine Ratio 27.9 H Glucose 102 Calcium 7.9 L Magnesium Total Bilirubin AST ALT Alkaline Phosphatase Troponin I Total Protein Albumin Globulin Albumin/Globulin Ratio Lipase TSH 0.52 Radiography Diagnostic Testing: Radiology Impression Chest X-Ray 07/26/20 22:17 IMPRESSION: Normal x-ray examination of the chest. Electronically Signed: Annette Tan MD at 23:02 EDT Tel , Service support , Meaningful Use Info Meaningful Use Diagnoses (Choose all that apply): None applicable Discharge Plan Admission Admit Date/Time: 07/26/20 23:36 Primary Reason for Your Visit: A. fib with RVR Attending Provider: Ari Ugalde Primary Care Provider: Emiliano Jose Instructions Patient Instructions: Atrial Fibrillation Additional Instructions / Restrictions: Follow-up with on Dr. Elizondo in [facility] solutions architect in 2 weeks Discharge Orders/Prescriptions Prescriptions: New Eliquis 5 mg Tablet 5 mg PO BID Qty: 60 RF: 1 sennosides-docusate sodium [Stool Softener-Stimulant Laxat] 8.6-50 mg Tablet 2 tab PO BID PRN PRN (Reason: Constipation) Qty: 0 RF: 0 diltiazem HCl 120 mg Capsule,Extended Release 24hr 120 mg PO DAILY Qty: 30 RF: 1 Continued atorvastatin 80 MG tablet 80 mg PO QHS RF: 0 aspirin 81 MG tablet,chewable 81 mg PO DAILY@0800 RF: 0 gabapentin 600 MG tablet 600 mg PO TIDCM RF: 0 hydrocodone-acetaminophen 1 TABLET tablet 1 tab PO TID PRN (Reason: Pain) RF: 0 pantoprazole 40 MG tablet 40 mg PO DAILY RF: 0 duloxetine 60 MG capsule 90 mg PO DAILY RF: 0 ferrous sulfate 325 mg (65 mg iron) Tablet 325 mg PO DAILY RF: 0 clopidogrel 75 mg Tablet 75 mg PO DAILY RF: 0 lisinopril 40 MG tablet 20 mg PO DAILY Qty: 0 RF: 0 Changed zzwwvk-kolokfmw-jfstjjp 1 EACH capsule,delayed release(DR/EC) 2 cap PO TID Qty: 180 RF: 1 metoprolol succinate tablet 100 mg PO DAILY Qty: 30 RF: 0 Discontinued polysaccharide iron complex 150 MG capsule 150 mg PO DAILYCM Qty: 90 RF: 3 Referrals / Follow Up: Emiliano Jose DO [Primary Care Provider] - In 1 Week Disposition Disposition (needs filled in before D/C Order can be placed): Home, self care Charges/Coding Visit Charges OBSV E&M: 44131 Observation care discharge
[2020-07-27] MEDS: dilTIAZem CD 120 MG Capsule PO (09:57)
[2020-07-27] MEDS: DULoxetine Hcl 30 MG Capsule 90 MG PO (09:57)
[2020-07-27] MEDS: Iron Polysaccharide Complex 150 MG CAPSULE PO (09:57)
[2020-07-27] MEDS: Metoprolol Tartrate 100 MG Tablet PO (09:57)
[2020-07-27] MEDS: Aspirin 81 MG TAB.CHEW PO (09:57)
[2020-07-27] MEDS: Lisinopril 20 MG Tablet PO (09:57)
[2020-07-27] MEDS: Pantoprazole Sodium 40 MG Tablet PO (09:57)
[2020-07-27] MEDS: Gabapentin 600 MG Tablet PO ×2 (09:57→11:37)
--- NOTE | 2020-07-27 13:23 | CASEMGMT ---
Pt to be sent home on Eliquis and med e-scribed to [facility] previously. This RN CM provided pt with Eliquis co-pay card with instructions, voices understanding. This RN CM tried to reach [facility] without success and according to pt's , their power is probably out at this time as he just spoke to someone else and the power is out in that area. After discussing with Ivelisse, PCU charge, pt to be given dose of Eliquis prior to discharge(it was already ordered to be given at 1500) and pt already had lovenox injection this am. Mauro HOWARD updated, voices understanding. Pt/ updated, voice understanding. Kameron HOWARD CM
--- NOTE | 2020-07-27 14:38 | PHA.DC.MC ---
Pharmacy Service has performed discharge medication reconciliation and counseling for this patient. The patient was counseled on the following discharge medications and changes in medications for homegoing were reviewed. 1. CARDIZEM 2. ELIQUIS The Reason for Use, instructions for use, and potential side effects were reviewed for all new medications. The patient's questions regarding all of their medications were answered. The patient was able to verbally demonstrate an understanding of their discharge medications. Home Medications aspirin 81 mg PO DAILY@0800 07/17/15 atorvastatin 80 mg PO QHS 07/17/15 gabapentin 600 mg PO TIDCM 01/20/19 hydrocodone-acetaminophen 1 tab PO TID PRN 01/20/19 pantoprazole 40 mg PO DAILY 01/20/19 duloxetine 90 mg PO DAILY 01/27/19 apixaban [Eliquis] 5 mg PO BID #60 tab 07/27/20 clopidogrel 75 mg PO DAILY 07/27/20 diltiazem HCl 120 mg PO DAILY #30 cap 07/27/20 ferrous sulfate 325 mg PO DAILY 07/27/20 fhejvx-ffmrmduv-xfwuiqa 2 cap PO TID #180 cap 07/27/20 lisinopril 20 mg PO DAILY #0 tab 07/27/20 metoprolol succinate 100 mg PO DAILY #30 tab 07/27/20 sennosides-docusate sodium [Stool Softener-Stimulant Laxat] 2 tab PO BID PRN PRN #0 tab 07/27/20 The patient's discharge medication list was reviewed for discrepancies and discrepancies were resolved.
[2020-07-27] MEDS: APIXABAN 5 MG TABLET PO (15:03)
== END 2020-07-27 12:13 | disposition home or self-care (01) ==
LOC: ED 23:28 → PCU 23:44
PROVIDERS: Admitting Provider Hospitalist; Emergency Provider Emergency Medicine; PCP Family Medicine; Visit Provider Internal Medicine
DX: I48.91 Unspecified atrial fibrillation (principal); M19.90 Unspecified osteoarthritis, unspecified site; R79.89 Other specified abnormal findings of blood chemistry; M79.7 Fibromyalgia; Z87.19 Personal history of other diseases of the digestive system; K21.9 Gastro-esophageal reflux disease without esophagitis; I25.10 Atherosclerotic heart disease of native coronary artery without angina pectoris; D64.9 Anemia, unspecified; F41.9 Anxiety disorder, unspecified; K86.1 Other chronic pancreatitis; I10 Essential (primary) hypertension; K58.0 Irritable bowel syndrome with diarrhea; F17.210 Nicotine dependence, cigarettes, uncomplicated; Z79.82 Long term (current) use of aspirin; Z79.899 Other long term (current) drug therapy; Z79.02 Long term (current) use of antithrombotics/antiplatelets; Z95.5 Presence of coronary angioplasty implant and graft
CPT/HCPCS: 36415; 71045; 80048; 80053; 83690; 83735; 84443; 84484; 85025; 85610; 93005; 93306; 96361; 96365; 96366; 96372; 96376; 99218; 99285; 99406; J7030; Q9957; A4216; G0378; J3490

== ENCOUNTER 2020-07-30 17:30 | Emergency (ER) | payer OTHER, BC, SELFPAY ==
[2020-07-27 00:05] VITALS: BMI 29.2
[2020-07-30 17:32] VITALS: BP 98/74; PULSE 144; PULSE 146; RESP 17; RESP 22; TEMP 35.7; TEMP 36.6; O2SAT 98; O2SAT 99; BMI 30.1
--- NOTE | 2020-07-30 17:37 | CT_ITS ---
EXAMINATION : Head CT w/out contrast HISTORY : head injury COMPARISON : None. TECHNIQUE : Multiple contiguous axial images were obtained from the skull base to the vertex without intravenous contrast. A radiation dose optimization technique was used for this scan. FINDINGS : There is no evidence for acute intracranial hemorrhage, mass effect, or midline shift. There is no extra-axial fluid collection. There are periventricular white matter changes consistent with chronic microvascular ischemic disease. There is sulcal widening and ventricular enlargement consistent with cerebral atrophy. There is normal pineda-white differentiation, without CT evidence of acute ischemia or infarct. The skull base and calvarium are unremarkable. The orbits are unremarkable. The paranasal sinuses are clear. The mastoid air cells are well-aerated. The soft tissues are unremarkable. CT/Brain/Head without Contrast IMPRESSION: No acute intracranial abnormality. Chronic involutional and ischemic changes of the brain. Electronically Signed: Kenneth Bhardwaj MD at 18:30 EDT Tel , Service support ,
--- NOTE | 2020-07-30 17:37 | CT_ITS ---
STUDY: CT CERVICAL SPINE WITHOUT CONTRAST REASON FOR EXAM: Female, 60 years old. syncope today, hit head RADIATION DOSAGE (If Supplied By Facility): CTDIvol = ( 19.96 ) mGy, DLP = ( 372.51 ) mGycm TECHNIQUE: High resolution transaxial imaging was performed without contrast material. Sagittal and coronal images were reconstructed. Individualized dose optimization techniques were used for this CT. COMPARISON: None FINDINGS: Normal craniovertebral junction. There are degenerative changes of the anterior atlantoaxial articulation. Normal odontoid process. There is straightening of the normal cervical lordosis. No visualized acute fracture or compression deformity. Mild multilevel degenerative changes are present. No significant central canal stenosis is seen. Unremarkable visualized soft tissue structures. CT/Spine Cervical without Contras IMPRESSION: Multilevel degenerative changes, as described above. Electronically Signed: Javier Goldberg MD at 18:13 EDT , Service support ,
--- NOTE | 2020-07-30 17:38 | EKG12_ITS ---
Test Reason : CONVERSION Blood Pressure : / mmHG Vent. Rate : 060 BPM Atrial Rate : 060 BPM P-R Int : 172 ms QRS Dur : 102 ms QT Int : 466 ms P-R-T Axes : 090 -16 121 degrees QTc Int : 466 ms Normal sinus rhythm Possible Left atrial enlargement Left ventricular hypertrophy ST/T Wave Abnormality: Consider Repolarization; Myocardial Ischemia(Lateral); Metabolic Effect: Medic ation Effect Abnormal ECG Confirmed by ISABELLA CRONIN, FLORENTINO ([id number]), newspaper photo editor PABLO QUINONES ([id number]) on 08/01/2020 9:30:03 AM Referred By: TRISTEN Confirmed By:FLORENTINO MASON MD
[2020-07-30] MEDS: 0.9% Normal Saline 1,000 ML 1000 ML IV (17:40)
--- NOTE | 2020-07-30 17:41 | EX.ED.DYSGE1 ---
HPI History of Present Illness Chief Complaint: Syncope Informant: patient Narrative Narrative: Patient brought in by EMS for syncopal episode. Reports at home standing next to the stove when she felt lightheaded and went to the ground she does not recall the incident. Denied any chest pains or shortness of breath. States prior to the incident felt palpitations. She states she was diagnosed with new onset atrial fibrillation this past was kept overnight in the hospital started on Eliquis for which she has been taking with last dose this afternoon before the event. She is on Cardizem started in the hospital. Her observer electrical prospecting is Dr. Ambrosio from [facility]. History of coronary stents x7. Last time was 7 8 years ago. Denies any current chest pains. EMS EKG sent reporting concerns for SVT, however with narrow complex tachycardia had ST depressions in the lateral leads no clear elevations. Review of records notes new onset atrial fibrillation diagnosed with placed on a Cardizem drip converted overnight in the hospital. Echocardiogram showed EF of 55% with stage II diastolic dysfunction. She is sent home on Cardizem and Eliquis as new medications. No cardiology involvement noted. Prior similar symptoms: Yes PFSH [facility] Medical History Anemia Anxiety Atrial fibrillation CAD (coronary artery disease) Carpal tunnel syndrome Fibromyalgia GERD (gastroesophageal reflux disease) IBS (irritable bowel syndrome) Osteoarthritis Pancreatitis Home Medications aspirin 81 mg PO DAILY@0800 07/17/15 [History Last Taken Unknown] atorvastatin 80 mg PO QHS 07/17/15 [History Last Taken Unknown] gabapentin 600 mg PO TIDCM 01/20/19 [History Last Taken Unknown] hydrocodone-acetaminophen 1 tab PO TID PRN 01/20/19 [History Last Taken Unknown] pantoprazole 40 mg PO DAILY 01/20/19 [History Last Taken Unknown] duloxetine 90 mg PO DAILY 01/27/19 [History Last Taken Unknown] apixaban [Eliquis] 5 mg PO BID #60 tab 07/27/20 [Rx Last Taken Unknown] clopidogrel 75 mg PO DAILY 07/27/20 [History Last Taken Unknown] diltiazem HCl 120 mg PO DAILY #30 cap 07/27/20 [Rx Last Taken Unknown] ferrous sulfate 325 mg PO DAILY 07/27/20 [History Last Taken Unknown] dapxmf-hglqvnig-uvqcoez 2 cap PO TID #180 cap 07/27/20 [Rx Last Taken Unknown] lisinopril 20 mg PO DAILY #0 tab 07/27/20 [Rx Last Taken Unknown] metoprolol succinate 100 mg PO DAILY #30 tab 07/27/20 [Rx Last Taken Unknown] sennosides-docusate sodium [Stool Softener-Stimulant Laxat] 2 tab PO BID PRN PRN #0 tab 07/27/20 [Rx Last Taken Unknown] Allergy/AdvReac Type Severity Reaction Status Date / Time latex Allergy Other Verified 07/30/20 17:34 Family History Sister Cervical cancer Grandfather Cancer Other Heart disease Surgical History H/O total hip arthroplasty Hx of cardiac cath Social History Smoking Status: Current some day smoker tobacco type: cigarettes ROS ROS ED Constitutional Constitutional ED: Denies chills, fever(s) or sweats Eyes Eyes: Denies change in vision ENT ENT ED: Denies dysphagia or sore throat Cardiovascular Cardiovascular: Reports palpitations, racing heartbeat and other Details: Syncope ; Denies chest pain or leg edema Respiratory/Chest Respiratory/Chest: Denies cough, dyspnea or dyspnea on exertion Gastrointestinal Gastrointestinal: Denies abdominal pain, diarrhea, nausea or vomiting Genitourinary Genitourinary ED: Denies dysuria, hematuria or urinary frequency Musculoskeletal Musculoskeletal: Denies back pain, extremity pain or neck pain Integumentary Denies rash or wounds Neurologic Neurologic: Denies headache(s), paresthesias or weakness EXAM Physical Exam Const Vital Signs: 07/30/20 17:32 07/30/20 17:38 07/30/20 18:02 Temperature 96.3 F L Temperature Source Temporal Pulse Rate 144 H 128 H Respiratory Rate 17 16 Respiratory Pattern Normal Blood Pressure 98/74 113/67 Blood Pressure Mean 82 82 Pulse Ox 99 100 Oxygen Delivery Method Nasal Cannula Nasal Cannula Oxygen Flow Rate (L/min) 2 2 07/30/20 18:26 07/30/20 19:00 07/30/20 20:15 Temperature Temperature Source Pulse Rate 112 H 141 H 53 L Respiratory Rate 17 14 16 Respiratory Pattern Blood Pressure 112/59 L 87/71 L 100/61 Blood Pressure Mean 76 76 74 Pulse Ox 100 100 100 Oxygen Delivery Method Nasal Cannula Nasal Cannula Room Air Oxygen Flow Rate (L/min) 2 2 Positive well nourished and well developed General Appearance ED: well developed and NAD HEENT Reports moist mucous membranes normocephalic and atraumatic Eyes PERRL, EOMs intact bilaterally and conjunctivae normal General Eye ED: Yes normal appearance of both eyes Neck no lymphadenopathy and supple General: Negative for tenderness Chest Wall Chest: Negative for tenderness Resp normal respiratory effort and normal air movement Effort and Inspection: symmetric chest movement; Negative for respiratory distress Cardio regular rhythm and no murmurs Rate: tachycardic Peripheral Pulses: pulses 2+ throughout GI normal to inspection, nondistended, normoactive bowel sounds and non-tender Palpation: Negative for guarding or rebound tenderness present Back/Spine no CVA tenderness and no thoracic nor lumbar tenderness Extremity normal to inspection General Extremety ED: Negative for edema or tenderness General Extremity: Negative for edema Neuro oriented x3 and no sensory deficits noted Sensorium / Orientation: awake and alert Skin no rashes or lesions noted and no wounds MDM MDM MDM Narrative Medical decision making narrative: With EKG narrow complex rate of 46 with her known recent a A. fib, more concerns for 2-1 atrial flutter with demand ischemia in the lateral leads. She had a blood pressure arrival of 98 systolic. Mentally intact. She had normal EF from echo she is given IV fluids, she will be sent for CT head and neck for fall on Eliquis. Discussed with patient for planned cardioversion. She did report taking her Eliquis with no missed doses last dose this afternoon. CT head and neck shows no acute process. Degenerative changes noted. Reevaluation the patient, heart rate went back to the 140s blood pressure down to the 80s. Consented for cardioversion. Performed with synchronized 125 J with AP pads. Patient back to normal sinus rhythm. Repeat EKG sinus rate in the 50s with resolved demand ischemia. Labs and troponin normal. Patient did not take her metoprolol today she took her Cardizem with heart rate in the 50s. I discussed with on-call observer electrical prospecting Dr. cuevas, discussed patient's presentation and findings and history along with medications. He recommended placing a 48-hour Holter monitor for him to read. She will hold her metoprolol due to her already bradycardia. She is on Eliquis and will continue her Cardizem. She will follow with her observer electrical prospecting as an outpatient. She will return if any worsening symptoms. Patient did ambulate in the department with no return of symptoms. Blood pressure improved after cardioversion. Procedure note: Written consent. Procedure sedation with cardioversion. Risks and benefits discussed. Placed on a monitor oxygen. Patient sedated with 2 mg Versed, 50 mcg of fentanyl. AP pads were placed. 125 J synchronized cardioverted back into normal sinus rhythm. Repeat EKG confirmed this. Patient tolerated procedure well. Lab Data Attestation: I reviewed the patient's lab results. Labs: Laboratory Results - last 24 hr 07/30/20 07/30/20 07/30/20 17:40 17:40 17:40 WBC 9.8 RBC 4.60 Hgb 13.3 Hct 42.4 MCV 92.2 MCH 28.9 MCHC 31.4 L RDW Std Deviation 54.0 H RDW Coeff of Mary 16.0 H Plt Count 398 MPV 10.9 Immature Gran % (Auto) 0.300 Neut % (Auto) 67.3 Lymph % (Auto) 22.1 [place] % (Auto) 7.4 Eos % (Auto) 2.4 Baso % (Auto) 0.5 Absolute Neuts (auto) 6.6 Absolute Lymphs (auto) 2.17 Nucleated RBC % 0 PT 15.4 H INR 1.3 APTT 36.0 Sodium 143 Potassium 4.2 Chloride 109 H Carbon Dioxide 28.0 Anion Gap 6 BUN 15 Creatinine 0.79 Estim Creat Clear Calc 61.08 Est GFR (MDRD) Af Amer 95 Est GFR (MDRD) Non-Af 79 BUN/Creatinine Ratio 19.0 Glucose 97 Calcium 8.2 L Troponin I < 0.015 Radiography Chest X-Ray - ED: 1 View, Read by ED Physician, Read by Radiologist and No Acute Disease Diagnostic Testing: Radiology Impression Brain CT 07/30/20 17:37 IMPRESSION: No acute intracranial abnormality. Chronic involutional and ischemic changes of the brain. Electronically Signed: Kenneth Bhardwaj MD at 18:30 EDT Tel , Service support , Cervical Spine CT 07/30/20 17:37 IMPRESSION: Multilevel degenerative changes, as described above. Electronically Signed: Javier Goldberg MD at 18:13 EDT , Service support , Chest X-Ray 07/30/20 18:00 IMPRESSION: Degenerative changes, as described above. No demonstrated acute cardiopulmonary process. Electronically Signed: Javier Goldberg MD at 18:30 EDT , Service support , EKG Initial EKG: Attestation: I personally reviewed and interpreted this EKG as follows: Comments: Narrow complex tachycardia at 146, there is ST depressions V4 to V6. No discrete elevations. Discharge Plan Triage Chief Complaint: Syncope ED Provider: Sukhi Osborn Dx/Rx/DC Orders Clinical Impression: Atrial fibrillation and flutter, Syncope, Encounter for cardioversion procedure Instructions: ED Atrial Flutter, ED Dizziness Syncope Fainting W Pre Prescriptions: No Action atorvastatin 80 MG tablet 80 mg PO QHS RF: 0 aspirin 81 MG tablet,chewable 81 mg PO DAILY@0800 RF: 0 gabapentin 600 MG tablet 600 mg PO TIDCM RF: 0 hydrocodone-acetaminophen 1 TABLET tablet 1 tab PO TID PRN (Reason: Pain) RF: 0 pantoprazole 40 MG tablet 40 mg PO DAILY RF: 0 duloxetine 60 MG capsule 90 mg PO DAILY RF: 0 ferrous sulfate 325 mg (65 mg iron) Tablet 325 mg PO DAILY RF: 0 clopidogrel 75 mg Tablet 75 mg PO DAILY RF: 0 Eliquis 5 mg Tablet 5 mg PO BID Qty: 60 RF: 1 sennosides-docusate sodium [Stool Softener-Stimulant Laxat] 8.6-50 mg Tablet 2 tab PO BID PRN PRN (Reason: Constipation) Qty: 0 RF: 0 diltiazem HCl 120 mg Capsule,Extended Release 24hr 120 mg PO DAILY Qty: 30 RF: 1 lisinopril 40 MG tablet 20 mg PO DAILY Qty: 0 RF: 0 kctemq-jvpqcrqg-kahelrp 1 EACH capsule,delayed release(DR/EC) 2 cap PO TID Qty: 180 RF: 1 metoprolol succinate tablet 100 mg PO DAILY Qty: 30 RF: 0 Primary Care Provider: Emiliano Jose Referrals: Emiliano Jose DO [Primary Care Provider] - 3-5 Days Activity Restrictions/Additional Instructions: Status post direct-current cardioversion back to sinus rhythm. Hold your metoprolol continue Cardizem and Eliquis. Holter monitor for 2 days. Follow-up with Dr. Ambrosio, your observer electrical prospecting. Return if any worsening symptoms. Disposition Disposition: Home, self care
--- NOTE | 2020-07-30 18:00 | RAD_ITS ---
STUDY: X-RAY CHEST REASON FOR EXAM: Female, 60 years old. syncope TECHNIQUE: Single AP portable view of the chest. COMPARISON: JULY 26, 2020 FINDINGS: The lungs are clear and expanded. There is no demonstrated pleural abnormality. Normal size heart. Normal mediastinum and silviano. Normal visualized pulmonary arteries. There is atherosclerotic calcification of the aortic arch with tortuosity. There are diffuse degenerative changes of the visualized thoracic spine. Normal visualized ribs, clavicles, and shoulders. There is no demonstrated abnormality of the visualized soft tissue structures of the upper abdomen. RAD/Chest 1 View (Portable) IMPRESSION: Degenerative changes, as described above. No demonstrated acute cardiopulmonary process. Electronically Signed: Javier Goldberg MD at 18:30 EDT , Service support ,
[2020-07-30 18:01] LABS: Absolute Lymphocyte Count 2.17 X10^3/uL (0.83-4.51); Absolute Neutrophil Count 6.6 X10^3/uL (2.0-7.7); Basophil# 0.05 X10^3/uL; Basophil% 0.5 % (0-1); Eosinophil# 0.24 X10^3/uL; Eosinophils% 2.4 % (0-5); Hematocrit 42.4 % (37-47); Hemoglobin 13.3 g/dL (12.0-15.0); Lymphocyte # 2.17 X10^3/ul (0.83-4.51); Lymphocyte % 22.1 % (19-41); Mean Corp Hgb Conc 31.4 g/dL (32-36); Mean Corpuscular Hgb 28.9 pg (27.0-32.0); Mean Corpuscular Volume 92.2 fL (81-99); Mean Platelet Vol. 10.9 fl (6.2-12.0); Monocyte# 0.73 X10^3/uL; Monocyte% 7.4 % (0-10); NRBC Flagged by Analyzer 0 % (0-5); Neutrophil # 6.59 X10^3/uL (2.7-7.7); Neutrophil % 67.3 % (47-70); Platelet Count 398 K/mm3 (150-450); White Blood Count 9.8 K/mm3 (4.4-11.0)
[2020-07-30 18:02] VITALS: BP 113/67; PULSE 128; RESP 16; O2SAT 100
[2020-07-30 18:20] LABS: Anion Gap 6 (5-15); BUN 15 mg/dL (7-18); Calcium,Total 8.2 mg/dL (8.5-10.1); Chloride 109 mmol/L (98-107); Creatinine, Serum 0.79 mg/dL (0.55-1.02); EST Glomerular Filtration Rate 79 mL/min (>60); Est Glom Filt Rate - Afr Amer 95 mL/min (>60); Estimated Creatinine Clearance 61.08 ml/min; Glucose 97 mg/dL (74-106); Potassium 4.2 mmol/L (3.5-5.1); Sodium Level 143 mmol/L (136-145)
[2020-07-30 18:22] LABS: International Normalized Ratio 1.3; Prothrombin Time (Protime)PT. 15.4 SECONDS (11.7-14.9)
[2020-07-30 18:26] VITALS: BP 112/59; PULSE 112; RESP 17; O2SAT 100
[2020-07-30] MEDS: 0.9% Normal Saline 1,000 ML 999 ML IV (18:59)
[2020-07-30 19:00] VITALS: BP 87/71; PULSE 141; RESP 14; O2SAT 100
[2020-07-30] MEDS: fentaNYL 100 MCG/2 ML Ampul 50 MCG IV (19:02)
[2020-07-30] MEDS: Midazolam 2 MG/2 ML Syringe IV (19:02)
--- NOTE | 2020-07-30 19:10 | EKG12_ITS ---
Test Reason : CP Blood Pressure : / mmHG Vent. Rate : 146 BPM Atrial Rate : 292 BPM P-R Int : 000 ms QRS Dur : 104 ms QT Int : 330 ms P-R-T Axes : 000 014 108 degrees QTc Int : 514 ms Atrial flutter with 2:1 A-V conduction ST-Segment Abnormality: Consider Subendocardial Injury (Lateral) Abnormal ECG Confirmed by ISABELLA CRONIN, FLORENTINO ([id number]), dictionary editor PABLO QUINONES ([id number]) on 08/01/2020 9:30:51 AM Referred By: TL Confirmed By:FLORENTINO MASON MD
[2020-07-30 20:15] VITALS: BP 100/61; PULSE 53; RESP 16; O2SAT 100
[2020-07-30 21:04] VITALS: BP 104/77; PULSE 50; RESP 16; O2SAT 98
== END 2020-07-30 21:05 | disposition home or self-care (01) ==
PROVIDERS: Emergency Provider Emergency Medicine; PCP Family Medicine
DX: I48.91 Unspecified atrial fibrillation (principal); I48.92 Unspecified atrial flutter; R55 Syncope and collapse; F17.210 Nicotine dependence, cigarettes, uncomplicated; K21.9 Gastro-esophageal reflux disease without esophagitis; I25.10 Atherosclerotic heart disease of native coronary artery without angina pectoris; Z79.01 Long term (current) use of anticoagulants; Z79.82 Long term (current) use of aspirin; Z95.5 Presence of coronary angioplasty implant and graft; Z79.899 Other long term (current) drug therapy
CPT/HCPCS: 70450; 71045; 72125; 80048; 84484; 85025; 85610; 85730; 92960; 93005; 93225; 96361; 96374; 96375; 99285; J7030; A4216

== ENCOUNTER → 2020-07-30 19:54 | Outpatient (CLI) | payer OTHER, BC, SELFPAY ==
[2020-07-30 17:32] VITALS: BMI 30.1
== END ==
PROVIDERS: PCP Family Medicine; Visit Provider Emergency Medicine
DX: R55 Syncope and collapse (principal)
CPT/HCPCS: 93226

== ENCOUNTER 2020-08-01 13:46 | Emergency (ER) | payer OTHER, BC, SELFPAY ==
[2020-08-01 13:48] VITALS: BP 129/80; PULSE 168; RESP 15; TEMP 37.1; O2SAT 97; BMI 29.5
--- NOTE | 2020-08-01 13:55 | EKG12_ITS ---
Test Reason : Blood Pressure : / mmHG Vent. Rate : 164 BPM Atrial Rate : 328 BPM P-R Int : 000 ms QRS Dur : 106 ms QT Int : 316 ms P-R-T Axes : 084 001 109 degrees QTc Int : 521 ms Atrial flutter with 2:1 A-V conduction Inferior infarct , possible anterolateral subendocardial injury Marked ST abnormality, possible anterolateral subendocardial injury Consider right ventricular involvement in acute inferior infarct Abnormal ECG Confirmed by ESTEFANI CRONIN, YAIR ([id number]), editor farm journal PABLO QUINONES ([id number]) on 08/03/2020 12:49:14 PM Referred By: RICHARD Confirmed By:YAIR JARA MD
[2020-08-01 14:01] VITALS: PULSE 166; RESP 18
[2020-08-01] MEDS: Adenosine 6 MG/2 ML Syringe IV (14:05)
[2020-08-01] MEDS: dilTIAZem 25 MG/5 ML Vial IV BOLUS (14:11)
--- NOTE | 2020-08-01 14:11 | ED.RN ---
6mg of adenosine given heart rate slowed that showed what appeared to be a-flutter on air sampling and monitoring.
--- NOTE | 2020-08-01 14:13 | EKG12_ITS ---
Test Reason : POST CARDIOVERSION Blood Pressure : / mmHG Vent. Rate : 061 BPM Atrial Rate : 061 BPM P-R Int : 160 ms QRS Dur : 104 ms QT Int : 460 ms P-R-T Axes : 071 006 077 degrees QTc Int : 463 ms Normal sinus rhythm Possible Left atrial enlargement Inferior infarct , age undetermined Abnormal ECG Confirmed by ESTEFANI CRONIN, YAIR ([id number]), makeup editor PABLO QUINONES ([id number]) on 08/03/2020 12:49:30 PM Referred By: RICHARD Confirmed By:YAIR JARA MD
[2020-08-01] MEDS: Aspirin 81 MG TAB.CHEW 324 MG PO (14:21)
[2020-08-01 14:23] LABS: Absolute Lymphocyte Count 1.35 X10^3/uL (0.83-4.51); Absolute Neutrophil Count 7.3 X10^3/uL (2.0-7.7); Basophil# 0.04 X10^3/uL; Basophil% 0.4 % (0-1); Eosinophil# 0.15 X10^3/uL; Eosinophils% 1.6 % (0-5); Hematocrit 45.5 % (37-47); Hemoglobin 14.2 g/dL (12.0-15.0); Lymphocyte # 1.35 X10^3/ul (0.83-4.51); Lymphocyte % 14.3 % (19-41); Mean Corp Hgb Conc 31.2 g/dL (32-36); Mean Corpuscular Hgb 28.6 pg (27.0-32.0); Mean Corpuscular Volume 91.7 fL (81-99); Mean Platelet Vol. 10.4 fl (6.2-12.0); Monocyte# 0.57 X10^3/uL; NRBC Flagged by Analyzer 0 % (0-5); Neutrophil # 7.28 X10^3/uL (2.7-7.7); Neutrophil % 77.3 % (47-70); Platelet Count 361 K/mm3 (150-450); RBC Distribution Width CV 15.8 % (11.6-14.6); RBC Distribution Width SD 53.1 fl (35.1-43.9); Red Blood Count 4.96 M/mm3 (4.2-5.4); White Blood Count 9.4 K/mm3 (4.4-11.0)
--- NOTE | 2020-08-01 14:30 | RAD_ITS ---
STUDY: X-RAY CHEST REASON FOR EXAM: Female, 60 years old. chest pain TECHNIQUE: 1 view COMPARISON: 07/30/2020 FINDINGS: The lungs are clear and expanded. There is no demonstrated pleural abnormality. The heart is mildly enlarged Normal mediastinum and silviano. Normal visualized pulmonary arteries. There is tortuosity of the thoracic aorta with calcifications of the aortic knob.. Normal visualized thoracic spine. Normal visualized ribs, clavicles, and shoulders. There is no demonstrated abnormality of the visualized soft tissue structures of the upper abdomen. RAD/Chest 1 View (Portable) IMPRESSION: Negative study for intrathoracic active disease. Electronically Signed: Denton Chanel, at 15:34 EDT Tel , Service support ,
[2020-08-01 14:43] LABS: Anion Gap 5 (5-15); BUN 12 mg/dL (7-18); BUN/Creat Ratio 14.9 RATIO (10-20); Calcium,Total 9.3 mg/dL (8.5-10.1); Chloride 106 mmol/L (98-107); EST Glomerular Filtration Rate 77 mL/min (>60); Est Glom Filt Rate - Afr Amer 93 mL/min (>60); Estimated Creatinine Clearance 62.96 ml/min; Glucose 93 mg/dL (74-106); Magnesium 1.9 mg/dL (1.6-2.6); Potassium 3.8 mmol/L (3.5-5.1); Sodium Level 141 mmol/L (136-145); Troponin-I HS 40.6 pg/mL (3.0-53.7)
--- NOTE | 2020-08-01 16:04 | EDS_ITS ---
HPI History of Present Illness Chief Complaint: Palpitations Informant: patient Onset/Context/Timing Onset: Today Activity at onset: sudden Timing: Continuous Quality: Positive for Heaviness Location: Substernal Worsened By: Nothing Relieved By: Nothing Associated Symptoms: Positive for Palpitations; Negative for Nausea, Vomiting, Diaphoresis, Dyspnea and Cough Narrative Narrative: Patient presents with chest pain and palpitations that began approximately 30 minutes prior to arrival. Patient states she could feel her heart beating fast. Patient states she has some discomfort over her left chest. Patient admits to some mild lightheadedness. Patient denies any fevers or chills. Patient denies any shortness of breath. Patient denies any nausea or vomiting. Patient is currently wearing a 48-hour Holter monitor that was ordered after her last emergency department visit where she was cardioverted into a normal sinus rhythm. Patient takes Eliquis along with Cardizem 120 mg daily. Prior Similar Symptoms: Yes PFSH PFS Medical History Anemia Anxiety Atrial fibrillation CAD (coronary artery disease) Carpal tunnel syndrome Fibromyalgia GERD (gastroesophageal reflux disease) IBS (irritable bowel syndrome) Osteoarthritis Pancreatitis Home Medications aspirin 81 mg PO DAILY@0800 07/17/15 [History Last Taken Unknown] atorvastatin 80 mg PO QHS 07/17/15 [History Last Taken Unknown] gabapentin 600 mg PO TIDCM 01/20/19 [History Last Taken Unknown] hydrocodone-acetaminophen 1 tab PO TID PRN 01/20/19 [History Last Taken Unknown] pantoprazole 40 mg PO DAILY 01/20/19 [History Last Taken Unknown] duloxetine 90 mg PO DAILY 01/27/19 [History Last Taken Unknown] apixaban [Eliquis] 5 mg PO BID #60 tab 07/27/20 [Rx Last Taken Unknown] clopidogrel 75 mg PO DAILY 07/27/20 [History Last Taken Unknown] ferrous sulfate 325 mg PO DAILY 07/27/20 [History Last Taken Unknown] nmtcgr-ewbgoqdp-dvtoshf 2 cap PO TID #180 cap 07/27/20 [Rx Last Taken Unknown] lisinopril 20 mg PO DAILY #0 tab 07/27/20 [Rx Last Taken Unknown] metoprolol succinate 100 mg PO DAILY #30 tab 07/27/20 [Rx Last Taken Unknown] sennosides-docusate sodium [Stool Softener-Stimulant Laxat] 2 tab PO BID PRN PRN #0 tab 07/27/20 [Rx Last Taken Unknown] diltiazem HCl [Cardizem CD] 180 mg PO DAILY #7 cap 08/01/20 [Rx Last Taken Unknown] Allergy/AdvReac Type Severity Reaction Status Date / Time latex Allergy Other Verified 07/30/20 17:34 Family History Sister Cervical cancer Grandfather Cancer Other Heart disease Surgical History H/O total hip arthroplasty Hx of cardiac cath Social History Smoking Status: Current some day smoker tobacco type: cigarettes ROS ROS ED Constitutional Constitutional ED: Denies chills or fever(s) Eyes Eyes: Denies blurry vision or change in vision ENT ENT ED: Denies rhinorrhea or sore throat Cardiovascular Cardiovascular: Reports chest pain and palpitations Respiratory/Chest Respiratory/Chest: Denies cough or dyspnea Gastrointestinal Gastrointestinal: Denies abdominal pain, nausea or vomiting Genitourinary Genitourinary ED: Denies dysuria or hematuria Musculoskeletal Musculoskeletal: Denies back pain or neck pain Integumentary Denies abscess or rash Neurologic Neurologic: Denies headache(s) or weakness Allergic/Immunologic Allergic/Immunologic ED: Denies mouth swelling or urticaria EXAM Physical Exam Const Vital Signs: 08/01/20 13:48 08/01/20 14:01 08/01/20 14:13 Temperature 98.7 F Temperature Source Temporal Pulse Rate 168 H 166 H Respiratory Rate 15 18 Respiratory Effort Normal Respiratory Pattern Normal Blood Pressure 129/80 H Blood Pressure Mean 96 Pulse Ox 97 Oxygen Delivery Method Room Air Nasal Cannula Oxygen Flow Rate (L/min) 2 08/01/20 14:17 08/01/20 17:04 Temperature Temperature Source Pulse Rate 66 Respiratory Rate 17 Respiratory Effort Respiratory Pattern Blood Pressure 134/109 H Blood Pressure Mean 117 Pulse Ox Oxygen Delivery Method Nasal Cannula Oxygen Flow Rate (L/min) 2 Positive well nourished and well developed General Appearance ED: well developed HEENT normocephalic and atraumatic Eyes PERRL and EOMs intact bilaterally Neck supple and no JVD Chest Wall palpation of chest normal Resp normal respiratory effort and clear to auscultation bilaterally Effort and Inspection: Negative for respiratory distress Cardio regular rhythm Rate: tachycardic GI normal to inspection, nondistended, normoactive bowel sounds, soft to palpation, non-tender and non-distended Extremity normal to inspection General Extremety ED: Negative for edema or tenderness General Extremity: Negative for edema Neuro oriented x3, CN's II-XII intact bilaterally and no sensory deficits noted Sensorium / Orientation: awake and alert Motor Exam: strength 5/5 throughout Psych mental status grossly normal Heart Score History: Slightly/Non-Suspicious ECG: Nonspecific Repolarization Age: >45 - <65 years Risk Factors: 1 or 2 Risk Factors Troponin: </= Normal Limit Score: 3 MDM MDM MDM Narrative Medical decision making narrative: Initial EKG was obtained. On my interpretation, it showed supraventricular tachycardia with a rate of 164. The re is some ST depression in the lateral leads. There are no prior EKGs available for comparison. Patient was given a dose of adenosine. Patient's heart rate slowed down. Flutter waves were visualized. Patient returned to supraventricular tachycardia with a rate of 160s. Patient was given a dose of Cardizem 25 mg IV. Patient converted to normal sinus rhythm. Repeat EKG shows a normal sinus rhythm with a rate of 61. There are no acute ST or T wave changes noted. CBC, basic metabolic profile, and troponin were all within normal limits. Portable 1 view chest x-ray was obtained. On my interpretation, lung rodriguez are clear. There is normal cardiac silhouette. Bony thorax is normal. There is no acute process noted. Radiologist also interpreted the x- ray and agrees. Patient is feeling better on reevaluation. Patient was increased on her Cardizem to 180 mg daily. Patient was instructed to follow-up with her dam tender assistant in 3 to 5 days. Patient was instructed return if worse in any way. Patient understood and was agreeable with the plan. All questions were answered. Lab Data Attestation: I reviewed the patient's lab results. Labs: Laboratory Results - last 24 hr 08/01/20 08/01/20 14:05 14:05 WBC 9.4 RBC 4.96 Hgb 14.2 Hct 45.5 MCV 91.7 MCH 28.6 MCHC 31.2 L RDW Std Deviation 53.1 H RDW Coeff of Mary 15.8 H Plt Count 361 MPV 10.4 Immature Gran % (Auto) 0.400 Neut % (Auto) 77.3 H Lymph % (Auto) 14.3 L [place] % (Auto) 6.0 Eos % (Auto) 1.6 Baso % (Auto) 0.4 Absolute Neuts (auto) 7.3 Absolute Lymphs (auto) 1.35 Nucleated RBC % 0 Sodium 141 Potassium 3.8 Chloride 106 Carbon Dioxide 30.0 Anion Gap 5 BUN 12 Creatinine 0.80 Estim Creat Clear Calc 62.96 Est GFR (MDRD) Af Amer 93 Est GFR (MDRD) Non-Af 77 BUN/Creatinine Ratio 14.9 Glucose 93 Calcium 9.3 Magnesium 1.9 Troponin I High Sens 40.6 Radiography Chest X-Ray - ED: 1 View, Read by ED Physician and Read by Radiologist Diagnostic Testing: Radiology Impression Chest X-Ray 08/01/20 14:30 IMPRESSION: Negative study for intrathoracic active disease. Electronically Signed: Denton Chanel, at 15:34 EDT Tel , Service support , EKG Initial EKG: Attestation: I personally reviewed and interpreted this EKG as follows: Interpretation: Atrial Flutter (164) and Non-Specific ST Changes Prior EKG tracings: not available for review Follow-up EKG: Attestation: I personally reviewed and interpreted this EKG as follows: Interpretation: Sinus Rhythm (61) and No Acute Injury Pattern Discharge Plan Triage Chief Complaint: Palpitations ED Provider: Mesfin aHrman Dx/Rx/DC Orders Clinical Impression: Atrial fibrillation and flutter Instructions: ED Atrial Flutter Prescriptions: New diltiazem HCl [Cardizem CD] 180 mg capsule,extended release 24hr 180 mg PO DAILY Qty: 7 RF: 0 Discontinued diltiazem HCl 120 mg Capsule,Extended Release 24hr 120 mg PO DAILY Qty: 30 RF: 1 No Action atorvastatin 80 MG tablet 80 mg PO QHS RF: 0 aspirin 81 MG tablet,chewable 81 mg PO DAILY@0800 RF: 0 gabapentin 600 MG tablet 600 mg PO TIDCM RF: 0 hydrocodone-acetaminophen 1 TABLET tablet 1 tab PO TID PRN (Reason: Pain) RF: 0 pantoprazole 40 MG tablet 40 mg PO DAILY RF: 0 duloxetine 60 MG capsule 90 mg PO DAILY RF: 0 ferrous sulfate 325 mg (65 mg iron) Tablet 325 mg PO DAILY RF: 0 clopidogrel 75 mg Tablet 75 mg PO DAILY RF: 0 Eliquis 5 mg Tablet 5 mg PO BID Qty: 60 RF: 1 sennosides-docusate sodium [Stool Softener-Stimulant Laxat] 8.6-50 mg Tablet 2 tab PO BID PRN PRN (Reason: Constipation) Qty: 0 RF: 0 lisinopril 40 MG tablet 20 mg PO DAILY Qty: 0 RF: 0 zrzcan-wwrqzixy-rjhlikk 1 EACH capsule,delayed release(DR/EC) 2 cap PO TID Qty: 180 RF: 1 metoprolol succinate tablet 100 mg PO DAILY Qty: 30 RF: 0 Primary Care Provider: Emiliano Jose Referrals: Emiliano Jose DO [Primary Care Provider] - 3-5 Days Disposition Disposition: Home, Self Care Discharge Date/Time: 08/01/20 17:05
[2020-08-01 17:04] VITALS: BP 134/109; PULSE 66; RESP 17; RESP 18
== END 2020-08-01 17:05 | disposition home or self-care (01) ==
PROVIDERS: Emergency Provider Emergency Medicine; PCP Family Medicine
DX: I48.91 Unspecified atrial fibrillation (principal); I48.92 Unspecified atrial flutter; I25.10 Atherosclerotic heart disease of native coronary artery without angina pectoris; F17.210 Nicotine dependence, cigarettes, uncomplicated; K21.9 Gastro-esophageal reflux disease without esophagitis; M19.90 Unspecified osteoarthritis, unspecified site; Z79.82 Long term (current) use of aspirin; Z79.899 Other long term (current) drug therapy; Z79.01 Long term (current) use of anticoagulants; Z79.02 Long term (current) use of antithrombotics/antiplatelets
CPT/HCPCS: 71045; 80048; 83735; 84484; 85025; 93005; 96374; 96375; 99285; J7030; A4216; J0153

== ENCOUNTER → 2020-08-15 16:41 | Outpatient (CLI) | payer OTHER, BC, SELFPAY ==
[2020-08-01 13:48] VITALS: BMI 29.5
[2020-08-15 17:39] LABS: Hematocrit 42.9 % (37-47); Hemoglobin 13.5 g/dL (12.0-15.0); Mean Corp Hgb Conc 31.5 g/dL (32-36); Mean Corpuscular Volume 92.3 fL (81-99); Mean Platelet Vol. 10.3 fl (6.2-12.0); Platelet Count 426 K/mm3 (150-450); RBC Distribution Width CV 15.6 % (11.6-14.6); RBC Distribution Width SD 52.3 fl (35.1-43.9); Red Blood Count 4.65 M/mm3 (4.2-5.4); White Blood Count 9.8 K/mm3 (4.4-11.0)
[2020-08-15 18:43] LABS: Iron 29 ug/dL (50-170)
== END ==
PROVIDERS: PCP Family Medicine; Referring Provider Internal Medicine Gastroenterology; Visit Provider Internal Medicine Gastroenterology
DX: D50.9 Iron deficiency anemia, unspecified (principal)
CPT/HCPCS: 36415; 83540; 85027

== ENCOUNTER → 2020-11-01 07:56 | Outpatient (CLI) | payer OTHER, SELFPAY ==
--- NOTE | 2020-11-01 08:00 | CT_ITS ---
STUDY: CTA ABDOMEN AND PELVIS WITH CONTRAST REASON FOR EXAM: Female, 60 years old. ABD PAIN RADIATION DOSAGE (If Supplied By Facility): CTDIvol = ( 19.49 ) mGy, DLP = ( 585.40 ) mGycm TECHNIQUE: Transaxial images were obtained from the dome of the diaphragm to the symphysis pubis without oral contrast. IV 100mL Isovue-370 was administered. Sagittal and coronal images were reconstructed. Individualized dose optimization techniques were used for this CT. COMPARISON: Comparison is made with prior study dated 01/12/2019. FINDINGS: The visualized lung bases are unremarkable. Coronary artery calcification. Normal liver. Normal gallbladder and extrahepatic biliary system. Normal spleen. There are pancreatic calcifications in the distribution of the ducts consistent with chronic pancreatitis. Normal bilateral adrenal glands. There is evidence of bilateral renal cortical atrophy worse on the right side. There is an 8.2 mm cyst in the medial posterior aspect of the right kidney. There is a small hiatal hernia. Normal small intestine. There is diffuse circumferential thickening of the sigmoid colon. A neoplastic process should be ruled out. This also evidence of a sigmoid diverticulosis. The appendix is visualized and appears normal. There is diffuse atherosclerotic calcification of the abdominal aorta and its major visceral branches.. Mild aneurysmal dilatation of the distal abdominal aorta with a transverse dimension of 2.9 cm. Mural thrombus is seen. There is evidence of atherosclerotic plaque formation of the common iliac arteries bilaterally. Normal inferior vena cava. Normal retroperitoneum. Normal urinary bladder. Normal abdominal wall. There are diffuse degenerative changes of the visualized lumbar spine. The patient is status post right total hip replacement. CT/CTA Abdomen W/WO Contrast IMPRESSION: Diffuse circumferential wall thickening of the sigmoid colon. A neoplastic process should be ruled out. Correlation with endoscopy is recommended. Bilateral renal atrophy worse on the right side. Small right renal cyst. Infrarenal abdominal aortic aneurysm. Electronically Signed: Juan Manuel Zepeda MD at 10:07 EDT , Service support ,
[2020-11-01 11:26] LABS: CREATININE FINGERSTICK 1.07 mg/dL (0.55-1.02); EGFR FINGERSTICK 55 mL/min (>60)
== END ==
PROVIDERS: PCP Family Medicine
DX: R10.11 Right upper quadrant pain (principal); R10.12 Left upper quadrant pain; R63.4 Abnormal weight loss; K55.1 Chronic vascular disorders of intestine; N26.1 Atrophy of kidney (terminal); N28.1 Cyst of kidney, acquired; I71.4 Abdominal aortic aneurysm, without rupture
CPT/HCPCS: 74175; Q9967; A4216

== ENCOUNTER → 2020-11-16 06:53 | Outpatient (CLI) | payer OTHER, SELFPAY ==
--- NOTE | 2020-11-16 07:00 | NM_ITS ---
CLINICAL: 60-year-old female with reported history of right upper quadrant abdominal pain. RADIONUCLIDE HEPATOBILIARY SCINTIGRAPHY COMPARISON: CTA of the abdomen report 11/01/2020 FINDINGS: Following the intravenous administration of 5.3 mCi of 99m Tc Mebrofenin, hepatobiliary images reveal: 1. Relatively prompt and homogeneous radiopharmaceutical concentration is noted by a normal sized liver. No parenchymal defects are identified. 2. Gallbladder activity is identified at 30 minutes post radiopharmaceutical administration. 3. Intestinal tract is not visualized during 60 minutes of pre-CCK sequential image acquisition, small bowel is observed following cholecystokinin infusion. 4. Washout of the radiopharmaceutical by the hepatic parenchyma appears qualitatively normal. Cholecystokinin (0.02 ug/kg) was administered intravenously over a 30-minute period. The post CCK gallbladder ejection fraction calculated at 20 minutes following Cholecystokinin administration was noted to be 43.0 % (normal greater than 35%). During 30 minutes of post CCK imaging, there is no scintigraphic evidence of reflux of the radiotracer into the common hepatic duct or refilling of the gallbladder. ID/Hepatobilliary Img w/Pharm Int IMPRESSION: 1. NORMAL 99m Tc Mebrofenin hepatobiliary imaging examination with Cholecystokinin. A. A gallbladder ejection fraction calculated to be greater than 35% following the administration of Cholecystokinin makes the probability of functional hepatobiliary disease (gallbladder and/or sphincter of Oddi dyskinesia) and/or organic hepatobiliary disease (chronic acalculous cholecystitis and/or cystic duct syndrome) to be low. (Hannah Barajas et al, Journal of Nuclear Medicine 32:1695, 1991). Electronically Signed: Jorgito Foreman DO at 7:43 EDT Tel , Service support ,
--- NOTE | 2020-11-16 07:01 | AAVD_ITS ---
Reason For Study: Postprandial abdominal pain in RUQ and LUQ Aorta Measurements Aorta Doppler Measurements Proximal aorta measures2.07 x 2.08cm. in cross- Peak systolic flow velocities within the proximal sectional axis. aorta measure 48.3 cm/sec. Proximal aorta measures2.10cm. in longitudinal Peak systolic flow velocities within the mid aorta axis. measure 46.9 cm/sec. Mid aorta measures2.44 x 2.49cm. in cross- Peak systolic flow velocities within the distal sectional axis. aorta measure 41.2 cm/sec. Mid aorta measures2.44cm. in longitudinal axis. Distal aorta measures2.40 x 2.48cm. in cross- sectional axis. Distal aorta measures2.54cm. in longitudinal axis. Celiac artery, 78.2 cm/sec. Hepatic artery, 74.7 cm/sec. Splenic artery, No Visualized. SMA origin, 561.6 cm/sec. SMA prox, 305.3 cm/sec. SMA mid, 322.6 cm/sec. SMA distal, 329.8 cm/sec. ALEX origin, 356 cm/sec. ALEX prox, 250.6 cm/sec. ALEX mid, 355.8 cm/sec. ALEX distal, 158.1 cm/sec. Left Iliac Artery Left iliac artery measures 1.22 x 1.23 cm. in the cross-sectional axis. Left iliac artery measures 1.23 cm. in the longitudinal axis. Peak systolic velocity in the left iliac artery measures 106.9 cm/sec. Right Iliac Artery Right iliac artery measures 0.96 x 1.09 cm. in the cross-sectional axis. Right iliac artery measures 1.00 cm. in the longitudinal axis. Peak systolic velocity in the right iliac artery measures 79 cm/sec. Procedure Aorta IVC Iliac vasculature or bypass grafts [id number]. Exam performed in department. VL/Abd Aortic/IVC Duplex scan Interpretation Summary Mild mid aortic ectasia 2.44 x 2.49 cm in diameter Normal aortic flow velocity Normal celiac and hepatic artery flow. Splenic artery could not be visualized. Superior mesenteric artery origin difficult visualization with 70 to 99% stenos is Difficult to visualize inferior mesenteric artery with 70 to 99% stenosis Left common iliac 1.22 x 1.23 cm diameter. Right common extra 0.96 x 1.09 cm diameter Ordering Physician: JOSE AGUIRRE Referring Physician: Emiliano Jose Performed By: Shelbie Abel RVT
== END ==
PROVIDERS: PCP Family Medicine
DX: R10.11 Right upper quadrant pain (principal); R10.12 Left upper quadrant pain; R63.4 Abnormal weight loss; K55.1 Chronic vascular disorders of intestine
CPT/HCPCS: 78227; 93978; A9537; J2805